=== PATIENT | female | born 1955 | race Caucasian/White ===

== ENCOUNTER → 2019-09-19 | Outpatient (CLI) | payer OTHER, MEDICARE ==
[~2019-09-19] MED LIST: ASCO500C PO; CALC1CAP7 PO; CHOL2400 MC; LETR2.5T2 PO; LEVO75TA5 PO; MULT-246 PO; SIMV40TA18 PO
== END | disposition home or self-care (01) ==
LOC: LAB 07:30
PROVIDERS: ATTEND Registered Nurse
DX: Z11.59 Encounter for screening for other viral diseases (principal)
CPT/HCPCS: C9803; U0003

== ENCOUNTER → 2019-09-22 | Day surgery (SDC) | payer OTHER, MEDICARE ==
[~2019-09-22] MED LIST changes: +IPRATRPIUM/ALBUTEROL 0.5/2.5MG 3 ML NEBU. NEB PRN; +IV RINGERS SOLUTION,LACTATED 1,000 ML IV SCH; +ONDANSETRON PF 4 MG/2 ML VIAL. IV PRN; +PROPOFOL 10,000 MCG/ML (20ML) VIAL IV ONE
[2019-09-22 10:44] VITALS: BP 131/72
== END | disposition home or self-care (01) ==
LOC: SURG 08:37
PROVIDERS: ATTEND Internal Medicine Gastroenterology
DX: Z12.11 Encounter for screening for malignant neoplasm of colon (principal); K63.89 Other specified diseases of intestine; E78.00 Pure hypercholesterolemia, unspecified; Z86.010 Personal history of colon polyps; Z79.899 Other long term (current) drug therapy
CPT/HCPCS: 45378; J2704; J7120